=== PATIENT | female | born 1995 | race Asian ===

== ENCOUNTER 2017-05-31 19:35 | Inpatient (IN) | payer SELFPAY ==
[2017-05-31] MEDS ORDERED: Lorazepam 2 MG/ML VIAL ONE (19:40)
[2017-05-31 20:08] LABS: #Lymphocytes 2.5 thou/uL (1.20-3.40); #Monocytes 0.6 thou/uL (0.11-0.59); #Neutrophils 6.3 thou/uL (1.40-6.50); %Basophils 0.3 % (0.0-1.0); %Eosinophils 0.4 % (0.0-10.0); %Lymphocytes 26.6 % (21.0-51.0); %Monocytes 6.1 % (0.0-10.0); Hematocrit 38.9 % (36.0-47.0); Mean Platelet Volume 7.6 fL (7.4-10.4); White Blood Cell (WBC) Count 9.4 thou/uL (4.8-10.8)
[2017-05-31 20:25] LABS: ALT (SGPT) Less than 7 U/L (8-55); AST (SGOT) 11 U/L (5-34); Alkaline Phosphatase 51 U/L (40-150); Anion Gap 27 mmol/L (10-20); BUN (Urea Nitrogen) 11 mg/dL (7.0-18.7); Bilirubin, Total 0.6 mg/dL (0.2-1.2); Calc. Creatinine Clearance 0 mL/min (70-130); Calcium 9.5 mg/dL (7.8-10.44); Carbon Dioxide 12 mmol/L (22-29); Chloride 103 mmol/L (98-107); Estimated GFR-MDRD 67; Globulin 3.4 g/dL (2.4-3.5); Protein, Total 7.9 g/dL (6.0-8.3)
[2017-05-31 20:27] LABS: Acetaminophen Less than 6.0 mcg/mL (10.0-30.0); CK (CPK) 96 U/L (29-168); Salicylate Less than 8.0 mg/dL (15.0-30.0)
[2017-05-31 21:39] LABS: Bilirubin Negative (Negative); Blood, Urine Negative (Negative); Glucose, Urine (Dipstick) Negative (Negative); Ketone, Urine Trace mg/dL (Negative); Nitrite Negative (Negative); Protein, Urine (Dipstick) Negative (Neg-Trace); Urobilinogen 0.2 mg/dL (0.2-1.0)
[2017-05-31 21:41] LABS: Bacteria/HPF None Seen HPF (None Seen); Hyaline Casts/LPF 0-3 HYALINE CAST LPF (0-3 Hyaline); RBC/HPF 0-3 HPF (0-3); Squamous Epithelial 0-3 HPF (0-3); WBC/HPF 0-3 HPF (0-3)
[2017-05-31 21:51] LABS: Amphetamine Not Detected (NotDetected); Methadone Not Detected (NotDetected); Methamphetamine Not Detected (NotDetected)
[2017-05-31] MEDS ORDERED: Lorazepam 2 MG/ML VIAL SLOW IVP PRN (23:42)
[2017-05-31] MEDS ORDERED: Sodium Chloride 0.9% 1,000 ML IV SCH (23:43)
[2017-05-31] MEDS ORDERED: Ondansetron ODT 4 MG TAB SL PRN (23:43)
[2017-05-31] MEDS ORDERED: Ondansetron HCl/PF 4 MG/2 ML Vial IVP PRN (23:43)
[2017-05-31] MEDS ORDERED: Acetaminophen 325 MG TAB PO PRN (23:43)
[2017-05-31 23:53] VITALS: BMI 23.0
[2017-06-01] MEDS ORDERED: Lorazepam 2 MG/ML VIAL SLOW IVP PRN (00:13)
[2017-06-01] MEDS: Sodium Chloride 0.9% 1,000 ML IV SCH ×3 (00:36→17:39)
[2017-06-01 01:08] LABS: Acetaminophen Less than 6.0 mcg/mL (10.0-30.0)
[2017-06-01 05:33] LABS: #Basophils 0.1 thou/uL (0.0-0.2); #Lymphocytes 2.1 thou/uL (1.20-3.40); #Monocytes 0.5 thou/uL (0.11-0.59); #Neutrophils 4.6 thou/uL (1.40-6.50); %Basophils 0.9 % (0.0-1.0); %Eosinophils 0.5 % (0.0-10.0); %Lymphocytes 29.2 % (21.0-51.0); %Monocytes 7.1 % (0.0-10.0); Hematocrit 37.1 % (36.0-47.0); Mean Platelet Volume 7.8 fL (7.4-10.4); White Blood Cell (WBC) Count 7.3 thou/uL (4.8-10.8)
--- NOTE | 2017-06-01 05:49 | ER ---
DATE OF SERVICE: 05/31/2017 Please refer to the patient's electronic medical record for further details of her visit. In summary, the patient presents via EMS, was reported intentional overdose of a large amount of Alberto adryl. On arrival, she began actively seizing, with tonic-clonic movements of her upper and lower e xtremities and concurrent loss of consciousness. She continued to breathe throughout her brief 1-2 minute episode of seizure activity. This resolved just prior to Ativan administration and did not r ecur. She had a typical postictal phase following her seizure, which cleared rapidly and she return ed to her baseline mental state. She had no focal neurologic deficits on exam following return to h er normal mental state. She remains hemodynamically stable throughout her ER stay, and initial tach ycardia improved with IV fluid administration. Her exam is consistent with a typical anticholinergi c toxidrome, with flushed skin and mydriasis, as well as hyperthermia and hypertension. Because of the significant overdose, she will require admission for medical evaluation and monitoring until she is medically stable for psychiatric evaluation. She was placed in suicide patient precautions and will continue with one-on-one monitoring while in the hospital. She has not been ill recently and i s otherwise in her usual state of health. No evidence of underlying infectious process. Roommate, who was with her at this time, denies any coingestants. Laboratory evaluation is noted and is prese nt on the chart. The patient is in stable condition at the time of admission.
[2017-06-01 06:02] LABS: ALT (SGPT) 9 U/L (8-55); AST (SGOT) 17 U/L (5-34); Alkaline Phosphatase 46 U/L (40-150); Anion Gap 14 mmol/L (10-20); BUN (Urea Nitrogen) 7 mg/dL (7.0-18.7); Bilirubin, Total 0.6 mg/dL (0.2-1.2); Calc. Creatinine Clearance 97 mL/min (70-130); Calcium 9.3 mg/dL (7.8-10.44); Carbon Dioxide 22 mmol/L (22-29); Chloride 107 mmol/L (98-107); Estimated GFR-MDRD Greater than 90; Globulin 2.8 g/dL (2.4-3.5); Protein, Total 6.9 g/dL (6.0-8.3)
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
[2017-06-01] MEDS ORDERED: FLU VACC QS2017-18 36 mo. & older 0.5 ML SYRINGE IM ONE (09:00)
[2017-06-01] MEDS ORDERED: Famotidine 20 MG TAB PO SCH (09:00)
[2017-06-01 16:36] VITALS: BP 123/84; TEMP 97.5
--- NOTE | 2017-06-02 06:16 | EKG ---
Test Reason : Blood Pressure : / mmHG Vent. Rate : 056 BPM Atrial Rate : 056 BPM P-R Int : 134 ms QRS Dur : 074 ms QT Int : 428 ms P-R-T Axes : 023 084 069 degrees QTc Int : 413 ms Sinus bradycardia Otherwise normal ECG When compared with ECG of 31-MAY-2017 19:46, (Unconfirmed) Vent. rate has decreased BY [address] no longer depressed in Inferior leads Non-specific change in ST segment in Anterior leads T wave inversion no longer evident in Inferior leads Confirmed by NENA DAVILA ([id number]) on 06/02/2017 6:16:20 AM Referred By: ABA Confirmed By:NENA DAVILA
[2017-06-02 07:30] LABS: Anion Gap 16 mmol/L (-14-95); Lactate 3.09 mmol/L (0.50-2.20); POC Est. GFR-MDRD-African-Amer Greater than 60 (2-60); POC Estimated GFR-MDRD Greater than 60 (2-60); T. Carbon Dioxide 19.7 mmol/L (1.0-85.0); pH (Venous) 7.491 (7.35-7.45); vO2 Saturation-calc 94.7 % (0.0-100.0)
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
== END 2017-06-01 19:37 | DRG 918 ==
LOC: ERS 19:35 → 2SE 23:12
PROVIDERS: ADMIT Family Medicine; ATTEND Family Medicine
DX: T45.0X2A Poisoning by antiallergic and antiemetic drugs, intentional self-harm, initial encounter (principal); E87.4 Mixed disorder of acid-base balance; I15.8 Other secondary hypertension; R00.0 Tachycardia, unspecified; R56.9 Unspecified convulsions; F41.9 Anxiety disorder, unspecified; R11.10 Vomiting, unspecified; Z23 Encounter for immunization
CPT/HCPCS: 36415; 80053; 80306; 80307; 81003; 81015; 81025; 82330; 82435; 82550; 82565; 82803; 82947; 83605; 84132; 84295; 84443; 84703; 85014; 85025; 90471; 90682; 93005; 93010; 96361; 96374; A4353; G0008; J2060; Q0162; Q2036